=== PATIENT | female | born 2000 | race Caucasian/White ===

== ENCOUNTER → 2019-10-11 | Outpatient (CLI) | payer SELFPAY ==
--- NOTE | 2019-10-11 12:32 | RADIOLOGY REPORT (SQ) ---
EXAM DESCRIPTION: U/S [id number] TRNABD 1GES W/ODOP IMAGES COMPLETED DATE/TIME: 10/11/2019 11:32 am REASON FOR STUDY: ENCTR FOR SUPERVISION OF NORMAL FIRST , 1ST TRIMESTER (Z34.01) Z34.01 EN CNTR FOR SUPRVSN OF NORMAL FIRST PREG, FIRST TRIMES COMPARISON: None. TECHNIQUE: Transabdominal static and realtime grayscale images acquired of the pelvis. Additional se lected spectral and color Doppler images recorded. All images stored on PACs. bHCG: Not applicable. CLINICAL DATES: 8 weeks 0 days LIMITATIONS: None. FINDINGS: FETUS: Single Living intrauterine . ULTRASOUND EGA: 11 weeks 6 days ULTRASOUND NICKOLAS: 04/25/2020 EFW: Not applicable less than 20 weeks. CRL: 5.1 cm FHR: 157 beats per minute. SURVEY: Too early to assess. AMNIOTIC FLUID: Adequate amount. PLACENTA: Not yet developed due to early gestation. SUBCHORIONIC BLEED: No. SIZE OF BLEED: Not applicable. UTERUS: No masses. No anomalies. CERVICAL LENGTH: 3.7 cm. Closed. RIGHT ADNEXA: Ovary not seen. No adnexal free fluid. No adnexal masses. LEFT ADNEXA: Ovary not seen. No adnexal free fluid. No adnexal masses. FREE FLUID: None. OTHER: No other significant finding. IMPRESSION: Living intrauterine . EGA 11 weeks 6 days. Trimester of : First trimester - 0 to 13 weeks. TECHNICAL DOCUMENTATION: JOB ID: [id number] 2010 [employer]- All Rights Reserved rev Reading location - IP/workstation name: [email or web address]
== END ==
LOC: RAD 10:13
PROVIDERS: ATTEND Midwife
DX: Z34.01 Encounter for supervision of normal first pregnancy, first trimester (principal)
CPT/HCPCS: 76801

== ENCOUNTER 2020-03-08 20:20 | Outpatient (CLI) | payer MEDICAID ==
[2020-03-08 21:19] LABS: APPEARANCE,URINE CLEAR; BILIRUBIN,URINE NEGATIVE (NEGATIVE); COLOR,URINE COLORLESS; GLUCOSE, URINE NEGATIVE (NEGATIVE); KETONES,URINE NEGATIVE (NEGATIVE); LEUKOCYTE ESTERASE,URINE NEGATIVE (NEGATIVE); NITRITE,URINE NEGATIVE (NEGATIVE); PROTEIN,URINE NEGATIVE (NEGATIVE); URINE SPECIFIC GRAVITY 1.004; UROBILINOGEN,URINE NEGATIVE mg/dL (<2.0)
[2020-03-08 21:35] LABS: URINE AMPHETAMINES SCREEN NEGATIVE; URINE BARBITURATES SCREEN NEGATIVE; URINE BENZODIAZEPINES SCREEN NEGATIVE; URINE COCAINE SCREEN NEGATIVE; URINE MARIJUANA (THC) SCREEN NEGATIVE; URINE METHADONE SCREEN NEGATIVE; URINE PHENCYCLIDINE SCREEN NEGATIVE
[2020-03-08 22:00] LABS: ABSOLUTE LYMPHOCYTES (AUTO) 1.9 10^3/uL (0.5-4.7); ABSOLUTE MONOCYTES (AUTO) 0.7 10^3/uL (0.1-1.4); ABSOLUTE NEUT (AUTO) 6.7 10^3/uL (1.7-8.2); BASOPHILS % (AUTO) 0.2 % (0-2); EOSINOPHILS % (AUTO) 0.2 % (0-6); HEMATOCRIT 31.1 % (36.0-47.0); HEMOGLOBIN 11.3 g/dL (12.0-15.5); LYMPHOCYTES % (AUTO) 20.5 % (13-45); MEAN CORPUSCULAR HEMOGLOBIN 34.7 pg (27.0-33.4); MEAN CORPUSCULAR HGB CONC 36.3 g/dL (32.0-36.0); MEAN CORPUSCULAR VOLUME 96 fl (80-97); MONOCYTES % (AUTO) 7.8 % (3-13); PLATELET COUNT 181 10^3/uL (150-450); RED BLOOD COUNT 3.26 10^6/uL (3.72-5.28); RED CELL DISTRIBUTION WIDTH 12.7 % (11.5-14.0); SEGMENTED NEUTROPHILS % (AUTO) 71.3 % (42-78); TOTAL CELLS COUNTED % (AUTO) 100 %; WHITE BLOOD COUNT 9.4 10^3/uL (4.0-10.5)
[2020-03-08 22:01] LABS: UR PRO/CREAT RATIO RESULT 1.2 mg/mg (0.0-0.2); URINE CREATININE 11.6 mg/dL (16-327)
[2020-03-08 22:21] LABS: ALKALINE PHOSPHATASE 93 U/L (38-126); ASPARTATE AMINO TRANSFERASE 21 U/L (14-36); BILIRUBIN,DIRECT 0.1 mg/dL (0.0-0.4); BILIRUBIN,TOTAL 0.4 mg/dL (0.2-1.3); BLOOD UREA NITROGEN 6 mg/dL (7-20); CALCIUM 8.3 mg/dL (8.4-10.2); CARBON DIOXIDE 25 mmol/L (22-30); CHLORIDE 105 mmol/L (98-107); GLUCOSE 104 mg/dL (75-110); POTASSIUM 3.7 mmol/L (3.6-5.0); TOTAL PROTEIN 5.7 g/dL (6.3-8.2); URIC ACID 3.1 mg/dL (2.5-6.2)
[2020-03-08 22:37] LABS: ANION GAP 3 (5-19)
--- NOTE | 2020-03-08 23:23 | Non Stress Test Report ---
Non Stress Test Datetime Report Generated by CPN: 03/08/2020 23:23 DEMOGRAPHIC EGA NST: 33.1 INDICATION Indication for Study (NST) Other: Gestational age greater than 32 weeks VITAL SIGNS Temperature - NST: 98.6 Pulse - NST: 74 RESP - NST: 17 NBPSYS NST: 126 NBPDIA NST: 73 MONITORING Monitor Explained: Monitor Explained; Test Explained; Patient Verbalized Understanding Time on Monitor: 03/08/2020 20:45 Time off Monitor: 03/08/2020 22:47 NST Duration: 122 NST INTERVENTIONS NST Interventions: PO Hydration; Reposition Patient Physician Notified NST: Dr. Lindsey BABY A: [id number] BABY A Movement : Present Contraction Frequency : x 1 FHR Baseline : 135 Accelerations : 15X15 Decelerations : None Variability : Moderate 6-25bpm NST Review: Meets Criteria for Reactive NST NST Review and Verified By : Saul Shaikh RN NST Results: Reactive NST REPORT Report Trigger: Send Report
== END 2020-03-08 23:02 | disposition home or self-care (01) ==
LOC: LC 20:20
PROVIDERS: ATTEND Obstetrics & Gynecology Gynecology
DX: O36.8130 Decreased fetal movements, third trimester, not applicable or unspecified (principal); O11.3 Pre-existing hypertension with pre-eclampsia, third trimester; O10.913 Unspecified pre-existing hypertension complicating pregnancy, third trimester; Z3A.33 33 weeks gestation of pregnancy
CPT/HCPCS: 36415; 59025; 80053; 80307; 81001; 82570; 83615; 84156; 84550; 85025

== ENCOUNTER 2020-03-09 20:52 | Outpatient (CLI) | payer MEDICAID ==
[2020-03-09 21:37] LABS: URINE PROTEIN 12.9 mg/dL (<12)
[2020-03-09 21:38] LABS: 24 HOUR URINE PROTEIN RESULT 542 mg/day (42-225)
--- NOTE | 2020-03-09 22:30 | Non Stress Test Report ---
Non Stress Test Datetime Report Generated by CPN: 03/09/2020 22:29 DEMOGRAPHIC EGA NST: 33.2 INDICATION Indication for Study (NST) Other: serial BP's MONITORING Monitor Explained: Monitor Explained; Test Explained; Patient Verbalized Understanding Time on Monitor: 03/09/2020 21:31 Time off Monitor: 03/09/2020 21:51 NST Duration: 20 NST INTERVENTIONS NST Interventions: None Physician Notified NST: Gonzalez BABY A: [id number] BABY A Contraction Frequency : x1 FHR Baseline : 135 Accelerations : 15X15 Decelerations : None Variability : Moderate 6-25bpm NST Review: Meets Criteria for Reactive NST NST Review and Verified By : Danitza Anderson, RN NST Results: Reactive NST REPORT Report Trigger: Send Report
--- NOTE | 2020-03-09 22:38 | L&D Progress Notes ---
PROGRESS NOTES Datetime Report Generated by CPN: 03/09/2020 22:38 PROGRESS NOTE Comment: Normal blood pressures. Elevated 24 urine. Plan delivery at 37 wks or for severe features. LAST VAGINAL EXAM-NURSING Nursing Exam Contractions: irritability noted SIGNATURE SIGNATURE: [id number] Signature: with User ID: [email or web address]
== END 2020-03-09 21:59 | disposition home or self-care (01) ==
LOC: LC 20:52
PROVIDERS: ATTEND Obstetrics & Gynecology
DX: O11.3 Pre-existing hypertension with pre-eclampsia, third trimester (principal); O36.8130 Decreased fetal movements, third trimester, not applicable or unspecified; Z3A.33 33 weeks gestation of pregnancy
CPT/HCPCS: 59025; 84156